=== PATIENT | male | born 1975 | race Caucasian/White ===

== ENCOUNTER → 2017-09-29 | Emergency (ER) | payer OTHER ==
[~2017-09-29] VITALS: Ht 180.3 cm; Wt 88.5 kg
[~2017-09-29] MED LIST: ALLI60 MG PO; AMOX1TAB12 PO; BENADRYL50 MG PO; CIPRO500 MG PO; COLACE100 MG PO; KEFLEX500 MG PO; KETO10TA2 PO; LODINE300 MG; MILLIPRED DP5 M1 PO; NORFLEX30 MG/ML; PERCOCET 5/3251 TAB PO; TAMS0.4C PO; ULTRACET PO
== END | disposition home or self-care (01) ==
LOC: ER
DX: J11.1 Influenza due to unidentified influenza virus with other respiratory manifestations (principal)

== ENCOUNTER 2018-03-10 12:00 | Emergency (ER) | payer OTHER ==
[~2018-03-10] VITALS: Ht 177.8 cm; Wt 86.2 kg
== END 2018-03-10 21:41 | disposition home or self-care (01) ==
LOC: ER 12:00 → CPU-OBS 12:05 → ER 12:05
DX: R07.89 Other chest pain (principal); I31.9 Disease of pericardium, unspecified; I24.9 Acute ischemic heart disease, unspecified; M54.2 Cervicalgia; M25.511 Pain in right shoulder
CPT/HCPCS: G0378; G0379; 93005; 76700